=== PATIENT | female | born 1975 | race Hispanic/Latino ===

== ENCOUNTER 2016-08-27 21:33 | Outpatient (CLI) | payer OTHER ==
[2016-08-27] MEDS ORDERED: LACTATED RINGERS 1,000 ML IV ONE (21:43)
[2016-08-27 22:19] LABS: Hematocrit 34.9 % (30.3-42.9); Hemoglobin 11.4 gm/dl (10.1-14.3); Mean Corpuscular HGB Conc 33 % (30-34); Mean Corpuscular Hemoglobin 28 pg (28-32); Mean Corpuscular Volume 85 fl (79-97); Platelet Count 219 K/mm3 (140-440); Red Blood Count 4.09 M/mm3 (3.65-5.03); Red Cell Distribution Width 14.1 % (13.2-15.2); White Blood Count 12.8 K/mm3 (4.5-11.0)
[2016-08-27 22:24] LABS: Bacteria,Urine 2+ /HPF (Negative); Bilirubin,Urine NEG (Negative); Blood,Urine NEG (Negative); Ketones,Urine NEG (Negative); Leukocyte Esterase,Urine NEG (Negative); Nitrite,Urine NEG (Negative); Protein,Urine <15 mg/dL mg/dL (Negative); Urobilinogen,Urine < 2.0 mg/dL (<2.0); WBC,Urine < 1.0 /HPF (0.0-6.0)
[2016-08-27 22:31] VITALS: BP 118/76
[2016-08-27 22:32] LABS: Alanine Aminotransferase 19 units/L (7-56); Lactate Dehydrogenase 132 units/L (91-180); Uric Acid 4.7 mg/dL (3.5-7.6)
[2016-08-27] MEDS ORDERED: VISTARIL PO ONE (22:41)
--- NOTE | 2016-08-27 22:41 | Event Note ---
Date: 08/27/16 Pt presented for elevated blood pressures at home. BPs in the triage are normal as well as labs are normal. Pt will be d/c home today with f/u with Dr. Melo. Precautions were given.
== END 2016-08-27 22:51 | disposition home or self-care (01) ==
LOC: TRG 21:33
PROVIDERS: ATTEND Obstetrics & Gynecology
DX: O13.3 Gestational [pregnancy-induced] hypertension without significant proteinuria, third trimester (principal); Z3A.33 33 weeks gestation of pregnancy
CPT/HCPCS: 36415; 81001; 82565; 83615; 84450; 84460; 84550; 85027; Q0177